=== PATIENT | female | born 1990 | race Caucasian/White ===

== ENCOUNTER 2016-11-03 11:15 | Emergency (ER) | payer BC ==
[2016-11-03 11:32] VITALS: RESP 16; TEMP 99.2
[2016-11-03] MEDS ORDERED: SODIUM CHLORIDE 0.9% 1,000 ML IV STA ×2 (11:50)
[2016-11-03] MEDS ORDERED: KETOROLAC 30 MG/ML 1 ML VIAL IVP STA (11:50)
--- NOTE | 2016-11-03 11:53 | ED ---
General Adult HPI - General Chief complaint: Abdominal Pain Stated complaint: vaginal bleeding Time Seen by Provider: 11/03/16 11:38 Source: patient, RN notes reviewed Mode of arrival: ambulatory Limitations: no limitations - History of Present Illness Initial comments: Patient 25-year-old female who presents emergency room today with a chief complaint of vaginal bleeding. Patient does admit that the bleeding began approximately 6 days ago. Patient does admit that she was at urgent care yesterday. She states started as small spotting for the first 2 days. States it began be heavier over the last 3. States again today is back more spotting. She does admit that she was advised to come to the emergency room if there was any pain. States pain began this morning both the right and left lower quadrant. Also admits that she felt a "heaviness" over her chest yesterday. States she laid down to get better. States felt fine this morning. States is that has been progressing the "heaviness" has returned. Patient denies any other complaints or associated symptoms. Patient denies any recent fever, chills, shortness of breath, back pain, nausea or vomiting, numbness or tingling, dysuria or hematuria, constipation or diarrhea, headaches or visual changes, or any other complaints. - Related Data Home Medications Medication Instructions Recorded Confirmed Magnesium(Unknown) 1 tab PO AC-LUNCH 11/03/16 11/03/16 Phentermine HCl [Adipex-P] 37.5 mg PO Q48H 11/03/16 11/03/16 Pnv with Ca,No.72/Iron/FA 1 tab PO Q48H 11/03/16 11/03/16 [ Plus Tablet] Vitamin B-12/Vitamin C 1 tab PO AC-LUNCH 11/03/16 11/03/16 Previous Rx's Medication Instructions Recorded Ibuprofen [Motrin] 600 mg PO Q6HR PRN #40 day 11/03/16 Nitrofurantoin Monohyd/M-Cryst 100 mg PO Q12HR #14 cap 11/03/16 [Macrobid] Allergies Allergy/AdvReac Type Severity Reaction Status Date / Time No Known Allergies Allergy Verified 11/03/16 11:56 Review of Systems ROS Statement: Those systems with pertinent positive or pertinent negative responses have been documented in the HPI. ROS Other: All systems not noted in ROS Statement are negative. Past Medical History Past Medical History: No Reported History Additional Past Medical History / Comment(s): KIDNEY STONE ovarian cysts History of Any Multi-Drug Resistant Organisms: None Reported Past Surgical History: No Surgical Hx Reported Additional Past Surgical History / Comment(s): IUD Past Psychological History: No Psychological Hx Reported Smoking Status: Current every day smoker Past Alcohol Use History: Occasional Past Drug Use History: None Reported General Exam - General Exam Comments Initial Comments: General: The patient is awake and alert, in no distress, and does not appear acutely ill. Eye: Pupils are equal, round and reactive to light, extra-ocular movements are intact. No nystagmus. There is normal conjunctiva bilaterally. No signs of icterus. Ears, nose, mouth and throat: There are moist mucous membranes and no oral lesions. Neck: The neck is supple, there is no tenderness or JVD. Cardiovascular: There is a regular rate and rhythm. No murmur, rub or gallop is appreciated. Respiratory: Lungs are clear to auscultation, respirations are non-labored, breath sounds are equal. No wheezes, stridor, rales, or rhonchi. Gastrointestinal: Normal appearance. Normal bowel sounds. Abdomen soft on palpation. Patient does have mild tenderness both right and left lower quadrants. No rebound tenderness. No guarding. No CVA tenderness. Musculoskeletal: Normal ROM, no tenderness. Strength 5/5. Sensation intact. Pulses equal bilaterally 2+. Neurological: A&O x 3. CN II-XII intact, There are no obvious motor or sensory deficits. Coordination appears grossly intact. Speech is normal. Skin: Skin is warm and dry and no rashes or lesions are noted. Psychiatric: Cooperative, appropriate mood & affect, normal judgment. Limitations: no limitations Course Vital Signs 11/03/16 11:29 Temperature 99.2 F Pulse Rate 115 H Respiratory 16 Rate Blood Pressure 123/86 O2 Sat by Pulse 100 Oximetry Medical Decision Making - Medical Decision Making Patient's ultrasound reviewed and does show anteverted nabothian cyst 1.1 cm. Endometrium shows IUD visualized. Left ovary does show a cystic structure measuring 1.81.71.6 cm. No evidence for ovarian torsion is good color flow. Adnexa is within normal limits. Small amount of free fluid in the posterior cul -de-sac. Patient's labs been reviewed does show 9 white cells and urinalysis. Remaining labs unremarkable. Hemoglobin stable. Patient reexamined at this time shows no signs of distress. Patient will be discharged home. Patient admits to a small amount of spotting currently. Patient will be treated for UTI advised follow-up with her [employer]ER WORKER over the next 2 days. She admits that she was at urgent care yesterday had a pelvic exam performed with cultures which are currently pending. - Lab Data Result diagrams: 11/03/16 12:35 Lab Results 11/03/16 11/03/16 11/03/16 Range/Units 12:35 12:35 12:35 WBC 4.9 (3.8-10.6) k/uL RBC 4.82 (3.80-5.40) m/uL Hgb 15.4 (11.4-16.0) gm/dL Hct 45.2 (34.0-46.0) % MCV 93.8 (80.0-100.0) fL MCH 31.9 (25.0-35.0) pg MCHC 34.0 (31.0-37.0) g/dL RDW 12.7 (11.5-15.5) % Plt Count 215 (150-450) k/uL Neutrophils % 74 % Lymphocytes % 15 % Monocytes % 7 % Eosinophils % 2 % Basophils % 1 % Neutrophils # 3.6 (1.3-7.7) k/uL Lymphocytes # 0.7 L (1.0-4.8) k/uL Monocytes # 0.4 (0-1.0) k/uL Eosinophils # 0.1 (0-0.7) k/uL Basophils # 0.1 (0-0.2) k/uL PT 11.3 (9.0-12.0) sec INR 1.1 (<1.1) APTT 25.7 (22.0-30.0) sec Troponin I (0.000-0.034) ng/mL Urine Color Urine Appearance (Clear) Urine pH (5.0-8.0) Ur Specific [place] (1.001-1.035) Urine Protein (Negative) Urine Glucose (UA) (Negative) Urine Ketones (Negative) Urine Blood (Negative) Urine Nitrate (Negative) Urine Bilirubin (Negative) Urine Urobilinogen (<2.0) mg/dL Ur Leukocyte Esterase (Negative) Urine RBC (0-5) /hpf Urine WBC (0-5) /hpf Ur Squamous Epith Cells (0-4) /hpf Urine Mucus (None) /hpf Urine HCG, Qual Not Detected (Not Detectd) 11/03/16 11/03/16 Range/Units 12:35 12:35 WBC (3.8-10.6) k/uL RBC (3.80-5.40) m/uL Hgb (11.4-16.0) gm/dL Hct (34.0-46.0) % MCV (80.0-100.0) fL MCH (25.0-35.0) pg MCHC (31.0-37.0) g/dL RDW (11.5-15.5) % Plt Count (150-450) k/uL Neutrophils % % Lymphocytes % % Monocytes % % Eosinophils % % Basophils % % Neutrophils # (1.3-7.7) k/uL Lymphocytes # (1.0-4.8) k/uL Monocytes # (0-1.0) k/uL Eosinophils # (0-0.7) k/uL Basophils # (0-0.2) k/uL PT (9.0-12.0) sec INR (<1.1) APTT (22.0-30.0) sec Troponin I <0.012 (0.000-0.034) ng/mL Urine Color Yellow Urine Appearance Clear (Clear) Urine pH 6.0 (5.0-8.0) Ur Specific [place] 1.027 (1.001-1.035) Urine Protein 1+ H (Negative) Urine Glucose (UA) Negative (Negative) Urine Ketones Negative (Negative) Urine Blood Large H (Negative) Urine Nitrate Negative (Negative) Urine Bilirubin Negative (Negative) Urine Urobilinogen <2.0 (<2.0) mg/dL Ur Leukocyte Esterase Small H (Negative) Urine RBC 4 (0-5) /hpf Urine WBC 9 H (0-5) /hpf Ur Squamous Epith Cells 3 (0-4) /hpf Urine Mucus Occasional H (None) /hpf Urine HCG, Qual (Not Detectd) Disposition Clinical Impression: Dysfunctional uterine bleeding, UTI (urinary tract infection) Disposition: HOME SELF-CARE Condition: Good Instructions: Dysfunctional Uterine Bleeding (ED) Additional Instructions: Please follow-up the RU[employer]ER WORKER over the next 1-2 days. Please use medications as prescribed and return to emergency room if any symptoms increase or worsen or for any other concerns. Prescriptions: Ibuprofen [Motrin] 600 mg PO Q6HR PRN #40 day PRN Reason: Pain Nitrofurantoin Monohyd/M-Cryst [Macrobid] 100 mg PO Q12HR #14 cap Time of Disposition: 14:29
[2016-11-03 12:58] LABS: Basophils # (A) 0.1 k/uL (0-0.2); Basophils % (A) 1 %; CH 32.4; CHCM 34.7; Eosinophils # (A) 0.1 k/uL (0-0.7); Eosinophils % (A) 2 %; HCT 45.2 % (34.0-46.0); HDW 2.43; HGB 15.4 gm/dL (11.4-16.0); Luc # (Auto) 0.04; Luc % (Auto) 1; Lymphocytes # (A) 0.7 k/uL (1.0-4.8); Lymphocytes % (A) 15 %; MCH 31.9 pg (25.0-35.0); MCV 93.8 fL (80.0-100.0); Mean Platelet Volume 7.9; Monocytes # (A) 0.4 k/uL (0-1.0); Monocytes % (A) 7 %; Neutrophils # (A) 3.6 k/uL (1.3-7.7); Neutrophils % (A) 74 %; RBC 4.82 m/uL (3.80-5.40); RDW 12.7 % (11.5-15.5); WBC 4.9 k/uL (3.8-10.6); WBC (Perox) 4.98
[2016-11-03 13:03] LABS: Appearance,Urine Clear (Clear); Bilirubin,Urine Negative (Negative); Glucose,Urine (UA) Negative (Negative); Ketones,Urine Negative (Negative); Leukocyte Esterase,Urine Small (Negative); Mucus,Urine Occasional /hpf; Nitrite,Urine Negative (Negative); Particle Count 10200; Protein,Urine 1+ (Negative); RBC,Urine 4 /hpf (0-5); Specific Gravity,Urine 1.027 (1.001-1.035); Squamous Epithelial Cell,Urine 3 /hpf (0-4); UA Billing (MACRO vs. MICRO) MICRO; Urobilinogen,Urine <2.0 mg/dL (<2.0); WBC,Urine 9 /hpf (0-5)
[2016-11-03 13:07] LABS: INR 1.1 (<1.1); Partial Thromboplastin Time 25.7 sec (22.0-30.0); Prothrombin Time 11.3 sec (9.0-12.0)
--- NOTE | 2016-11-03 14:27 | US ---
EXAMINATION TYPE: US transvaginal DATE OF EXAM: 11/03/2016 1:48 PM COMPARISON: NONE CLINICAL HISTORY: pain/bleeding. vaginal bleeding x 6 days, right pelvic pain, IUD placement 03/01 TECHNIQUE: Transvaginal (TV) Date of LMP: 10/19/16 EXAM MEASUREMENTS: Uterus: 7.1 x 3.9 x 5.4 cm Endometrial Stripe: 0.5 cm Right Ovary: 3.2 x 1.7 x 2.5 cm Left Ovary: 3.4 x 2.1 x 2.4 cm FINDINGS: 1. Uterus: Anteverted Nabothian cyst = 1.1cm 2. Endometrium: IUD visualized 3. Right Ovary: follicles noted 4. Left Ovary: cystic area with septation = 1.8 x 1.6 x 1.7cm Spectral, color and waveform doppler imaging shows good arterial and venous flow within the ovaries ; there is no evidence for ovarian torsion. 5. Bilateral Adnexa: appears wnl 6. Posterior cul-de-sac: small amount of free fluid IMPRESSION: 1. IUD noted in stable position. 2. Complicated 1.8 cm right ovarian cyst which is reduced in size from previous exam. Correlate with beta hCG if there is concern for ectopic .
[2016-11-03 14:47] VITALS: BP 113/72; PULSE 77
== END 2016-11-03 14:46 | disposition home or self-care (01) ==
LOC: EC 11:15
DX: N93.8 Other specified abnormal uterine and vaginal bleeding (principal); N39.0 Urinary tract infection, site not specified; N83.201 Unspecified ovarian cyst, right side; N88.8 Other specified noninflammatory disorders of cervix uteri; F17.200 Nicotine dependence, unspecified, uncomplicated; Z97.5 Presence of (intrauterine) contraceptive device; Z87.442 Personal history of urinary calculi; Z79.899 Other long term (current) drug therapy
CPT/HCPCS: 99284; 96374; 96361 ×2; 36415; 93005; 84484; 85025; 85610; 85730; 81001; 81025; 93975; 76830; J1885

== ENCOUNTER 2016-11-04 13:13 | Observation (INO) | payer BC ==
[2016-11-04] MEDS ORDERED: ACETAMINOPHEN TAB 325 MG TAB PO PRN (16:07)
[2016-11-04] MEDS ORDERED: MELATONIN 3 MG TABLET PO PRN (16:07)
[2016-11-04] MEDS ORDERED: NALOXONE 0.4 MG/ML 1 ML VIAL IV PRN (16:07)
[2016-11-04] MEDS ORDERED: ONDANSETRON 4 MG/2 ML VIAL IVP PRN (16:07)
[2016-11-04 17:42] LABS: Basophils % (A) 1 %; CH 32.3; CHCM 33.6; Eosinophils # (A) 0.1 k/uL (0-0.7); Eosinophils % (A) 2 %; HCT 43.3 % (34.0-46.0); HDW 2.45; HGB 14.4 gm/dL (11.4-16.0); Luc # (Auto) 0.11; Luc % (Auto) 2; Lymphocytes # (A) 1.1 k/uL (1.0-4.8); Lymphocytes % (A) 23 %; MCHC 33.1 g/dL (31.0-37.0); MCV 96.5 fL (80.0-100.0); Mean Platelet Volume 7.9; Monocytes # (A) 0.4 k/uL (0-1.0); Monocytes % (A) 8 %; Neutrophils # (A) 3.2 k/uL (1.3-7.7); Neutrophils % (A) 65 %; RBC 4.49 m/uL (3.80-5.40); RDW 12.8 % (11.5-15.5); WBC 4.9 k/uL (3.8-10.6); WBC (Perox) 5.09
[2016-11-04] MEDS: PIPERACILLIN-TAZOBACTAM 3.375 GM in DEXTROSE/WATER 1 50ML.BAG IVPB SCH ×2 (17:45→23:39)
[2016-11-04] MEDS: SODIUM CHLORIDE 0.9% 1,000 ML IV SCH (17:46)
[2016-11-04 18:09] LABS: ALT 64 U/L (9-52); AST 61 U/L (14-36); Alkaline Phosphatase 79 U/L (38-126); Anion Gap 12 mmol/L; Blood Urea Nitrogen 5 mg/dL (7-17); Calcium 9.4 mg/dL (8.4-10.2); Carbon Dioxide 24 mmol/L (22-30); Chloride 109 mmol/L (98-107); Glucose 86 mg/dL (74-99); Non-African American GFR(MDRD) >60 (>60 ml/min/1.73 sqM); Potassium 4.2 mmol/L (3.5-5.1); Sodium 145 mmol/L (137-145); Total Bilirubin 0.4 mg/dL (0.2-1.3); Total Protein 7.2 g/dL (6.3-8.2)
--- NOTE | 2016-11-04 19:11 | P.OBCN ---
History of Present Illness Consult date: 11/04/16 Requesting physician: Francisco Finn Reason for consult: pelvic infection History of present illness: This is a 25-year-old white female 1 para 1001 last menstrual period 09/2016. Patient presented through the emergency room with the complaint of bilateral hip pain and lower back pain for approximately 24 hours. She states that it is constant and dull, 3-4 out of 10, with occasional very sharp episodes 10 out of 10. She denies nausea or vomiting. No diarrhea. Last bowel movement yesterday, normal. Last intercourse yesterday, no pain with intercourse. She denies fevers shakes or chills, but was said to have a temperature of 101.5 at her primary care physician's office. Past medical history is positive for kidney stones in the past, pt had a Paraguard IUD placed per Dr. Polanco in 2013. Past surgical history negative. Past obstetric history normal spontaneous vaginal delivery 2010, liveborn female . Current medications none. ALLERGIES none known. Social history patient is , she smokes tobacco 1/2-1/4 pack per day since age 18. She denies drug use. She states that both she and her are monogamous. Past gynecologic history menarche began at the age of 12 with 28 day interval and 4 day duration. She spotted for 2 days, dark flow on to 1017 and 2016. She feels the flow had a strong unusual odor. She otherwise denies the history of GC, chlamydia, HSV or HPV infections. On exam this is a pleasant white female, 5 foot 4 inches, 156 pounds, blood pressure 116/70, temperature 98.0, 97% O2 saturation on room air, pulse 92. HEENT exam is negative. There is no thyromegaly. She has good dentition. Breast exam reveals no masses, no nipple discharge, no skin changes, no lymph nodes to palpation. Abdomen is soft and nontender, no organosplenomegaly, tender suprapubically with no rebound or guarding. No obvious masses. No CVA tenderness. Extremities reveal no edema, good peripheral pulses, normal strength and range of motion. And pelvic exam external genitalia is well estrogenized. There is no unusual vaginal discharge appreciated. There is no cervical motion tenderness, cervix is long firm and closed. IUD strings are palpated at the external os. Uterus is retroverted, mobile, minimally tender to palpation. Left adnexa is mobile smooth and small, nontender. Patient has tenderness to palpation of the right adnexal region, however there is no mass noted. Pelvic ultrasound reveals a uterus 7.1 x 3.9 x 5.4 cm, endometrial thickness 0.5 cm, left ovary 3.2 x 1.7 x 2.5 cm, right ovary 3.4 x 2.1 x 2.4 cm, there is a small 1.8 cm left adnexal cyst noted. Minimal fluid in the cul-de-sac. AST 61, ALT 64, hemoglobin 14.4, hematocrit 43.3, white count 4.9. Impression: Admitting diagnosis of PID, although the social history does not support this and her white count is normal. Patient is currently on Zosyn and Flagyl for same. IUD appears well placed, uterus is nontender. Elevated liver enzymes noted. Plan: GC and chlamydia culture has been ordered through the urine. Trichomonas culture from outside lab is negative. We will also order urine hCG. Continue antibiotics at this time. Review of Systems Constitutional: Reports as per HPI Past Medical History Past Medical History: No Reported History Additional Past Medical History / Comment(s): KIDNEY STONE, ovarian cysts, poly cystic ovary, uti x1 when she was . History of Any Multi-Drug Resistant Organisms: None Reported Past Surgical History: No Surgical Hx Reported Additional Past Surgical History / Comment(s): IUD, tooth extraction Past Anesthesia/Blood Transfusion Reactions: No Reported Reaction Past Psychological History: No Psychological Hx Reported Smoking Status: Current every day smoker Past Alcohol Use History: Occasional Additional Past Alcohol Use History / Comment(s): started smoking at age 18( stopped while ) then resume, smokes 4-5 cig per day. Past Drug Use History: None Reported - Past Family History Father Additional Family Medical History / Comment(s): in hunting accident Mother Additional Family Medical History / Comment(s): healthy Medications and Allergies Home Medications Medication Instructions Recorded Confirmed Type Magnesium(Unknown) 1 tab PO AC-LUNCH 11/03/16 11/04/16 History Phentermine HCl [Adipex-P] 37.5 mg PO Q48H 11/03/16 11/04/16 History Pnv with Ca,No.72/Iron/FA 1 tab PO DAILY 11/03/16 11/04/16 History [ Plus Tablet] Vitamin B-12/Vitamin C 1 tab PO DAILY 11/03/16 11/04/16 History Allergies Allergy/AdvReac Type Severity Reaction Status Date / Time No Known Allergies Allergy Verified 11/04/16 14:21 Exam - Vital Signs Vital signs: Vital Signs Temp Pulse Resp BP Pulse Ox 11/04/16 14:10 98.1 F 116 H 16 116/70 97 Intake and Output 11/04/16 11/04/16 11/04/16 06:59 14:59 22:59 Other: Weight 72.5 kg Patient Weight 11/05/16 06:59 Weight 72.5 kg See dictation, please Results Result Diagrams: 11/04/16 17:15 11/04/16 17:15 Abnormal Lab Results - Last 24 Hours (Table) 11/04/16 Range/Units 17:15 Chloride 109 H (98-107) mmol/L BUN 5 L (7-17) mg/dL AST 61 H (14-36) U/L ALT 64 H (9-52) U/L Assessment and Plan Plan: Continue Zosyn and Flagyl at this time. Urine cultures for gonorrhea and chlamydia have been ordered along with urine test. Time with Patient: Greater than 30
[2016-11-04] MEDS: metroNIDAZOLE-NS PMX 500 MG in SALINE 1 100ML.BAG IVPB SCH (20:20)
[2016-11-04] MEDS: LORATADINE-PSEUDOEPH 5-120 MG 1 EACH TAB.ER.12H PO SCH (20:20)
[2016-11-04] MEDS: KETOROLAC 30 MG/ML 1 ML VIAL IVP PRN (20:23)
--- NOTE | 2016-11-04 20:52 | HP ---
DATE OF ADMISSION: 11/04/2016 PRESENTING COMPLAINT: Fever. Abdominal pain. HISTORY OF PRESENTING COMPLAINT: This is a pleasant 25-year-old patient of Dr. Loera whose only chronic stable medical condition is that of polycystic ovarian syndrome. Patient over a week ago started off with vaginal spotting, and then about 3 or 4 ( ) started having vaginal blood that was gushing out. Patient developed lower abdominal pain and fever up to 101.5. Patient had IUD placed about a year and a half ago. Does feel weak, tired and also slightly congested. REVIEW OF SYSTEMS: CONSTITUTIONAL: Febrile. Tired. HEENT: Nasal congestion. RESPIRATORY: As above. CARDIOVASCULAR: None. GASTROINTESTINAL: None. GENITOURINARY: As above. MUSCULOSKELETAL: None. Dermatologic: None. HEMATOLOGIC: None. LYMPHATIC: None. PSYCHIATRY: None. NEUROLOGICAL: None. Past medical history: Polycystic ovarian syndrome, kidney stone. PAST SURGICAL HISTORY: IUD, tooth extraction. SOCIAL HISTORY: Smokes 4 to 5 cigarettes a day. Patient is a director field services for [employer] . Alcohol occasionally. FAMILY HISTORY: Reviewed, noncontributory to the presentation. HOME MEDICATIONS: 1. Vitamin B12. 2. Vitamin C 1 tablet daily. 3. Plus 1 tablet p.o. daily. 4. Adipex-P 37.5 q. 48 hours. 5. Macrobid 100 mg p.o. q.12. 6. Magnesium 1 tablet ( ) lunch. 7. Motrin 600 mg 6 p.r.n. ALLERGIES: None. On examination, temperature 98.1, pulse 116, respirations 16, blood pressure 116/70, pulse ox 97% on room air. The patient did have a fever of 101.5 at the doctor's office. GENERAL APPEARANCE: Average build, lying in bed, tired -appearing. EYES: Pupils equal, conjunctivae normal. HEENT: Oral cavity normal. NECK: JVD not raised. Mass not palpable. RESPIRATORY: Effort normal. Lungs are clear. CARDIOVASCULAR: First and second sounds normal. No edema. ABDOMEN: Soft suprapubic tenderness. No guarding or rigidity. Liver and spleen not palpable. LYMPHATIC: No lymph nodes palpable in neck or axillae. PSYCHIATRY: Alert and oriented x3. Mood and affect normal. NEUROLOGICAL: Pupils equal. Cranial nerves grossly intact. Power and sensation grossly intact. INVESTIGATIONS: White count 4.9, hemoglobin 14.4. Potassium 4.2, BUN 5, creatinine 0.92. ASSESSMENT: 1. This is a patient with IUD in place with pelvic tenderness, increasing menorrhagia with a fever. This could be well from endometrial infection. 2. Polycystic ovarian syndrome. PLAN: WELD FITTER was consulted. Patient was put empirically on Zosyn and Flagyl, for the nasal congestion give some Claritin D. Care was discussed with the patient.
[2016-11-05] MEDS: metroNIDAZOLE-NS PMX 500 MG in SALINE 1 100ML.BAG IVPB SCH ×2 (05:04→12:53)
[2016-11-05] MEDS: SODIUM CHLORIDE 0.9% 1,000 ML IV SCH ×2 (05:08→16:27)
[2016-11-05 07:29] LABS: Basophils % (A) 0 %; CH 31.8; CHCM 33.6; Eosinophils # (A) 0.1 k/uL (0-0.7); Eosinophils % (A) 3 %; HCT 42.4 % (34.0-46.0); HDW 2.48; HGB 13.7 gm/dL (11.4-16.0); Luc # (Auto) 0.12; Luc % (Auto) 4; Lymphocytes # (A) 1.2 k/uL (1.0-4.8); Lymphocytes % (A) 42 %; MCH 30.7 pg (25.0-35.0); MCHC 32.4 g/dL (31.0-37.0); MCV 94.9 fL (80.0-100.0); Mean Platelet Volume 7.2; Monocytes # (A) 0.2 k/uL (0-1.0); Monocytes % (A) 7 %; Neutrophils # (A) 1.2 k/uL (1.3-7.7); Neutrophils % (A) 42 %; RBC 4.47 m/uL (3.80-5.40); RDW 12.9 % (11.5-15.5); WBC 2.8 k/uL (3.8-10.6)
[2016-11-05] MEDS: PIPERACILLIN-TAZOBACTAM 3.375 GM in DEXTROSE/WATER 1 50ML.BAG IVPB SCH ×2 (08:16→16:27)
[2016-11-05] MEDS: KETOROLAC 30 MG/ML 1 ML VIAL IVP PRN (08:17)
[2016-11-05] MEDS: LORATADINE-PSEUDOEPH 5-120 MG 1 EACH TAB.ER.12H PO SCH (08:47)
--- NOTE | 2016-11-05 11:20 | P.PN ---
Subjective Principal diagnosis: Presumptive diagnosis of PID. Only scant vaginal drainage. Pain improved, 3-4 out of 10, most notably in the lower back. Objective - Vital Signs Vital signs: Vital Signs Temp 98.6 F 11/05/16 07:00 Pulse 88 11/05/16 07:00 Resp 16 11/05/16 07:00 BP 103/69 11/05/16 07:00 Pulse Ox 97 11/05/16 07:00 Intake & Output 11/04/16 11/05/16 11/05/16 18:59 06:59 18:59 Intake Total 2740 Balance 2740 Weight 72.5 kg Intake: IV 1800 Sodium Chloride 0.9% 1, 1800 000 ml @ 125 mls/hr IV . Q8H ALESSANDRO Rx#:[id number] Intake, IV Titration 150 Amount Piperacillin-Tazobactam 3 50 .375 gm In Dextrose/Water 1 50ml.bag @ 12.5 mls/hr IVPB Q8HR ALESSANDRO Rx#: [id number] metroNIDAZOLE-NS PMX 500 100 mg In Saline 1 100ml.bag @ 100 mls/hr IVPB Q8H ALESSANDRO Rx#:[id number] Oral 790 Other: # Voids 2 - Constitutional General appearance: Present: average body habitus, cooperative - EENT Eyes: Present: PERRLA ENT: Present: hearing grossly normal - Neck Neck: Present: normal ROM Thyroid: bilateral: normal size - Respiratory Respiratory: bilateral: CTA - Cardiovascular Rhythm: regular - Gastrointestinal General gastrointestinal: Present: normal bowel sounds - Integumentary Integumentary: Present: normal - Neurologic Neurologic: Present: CNII-XII intact - Musculoskeletal Musculoskeletal: Present: gait normal, strength equal bilaterally - Psychiatric Psychiatric: Present: A&O x's 3, appropriate affect, intact judgment & insight - Labs CBC & Chem 7: 11/05/16 07:03 11/04/16 17:15 Labs: Abnormal Lab Results - Last 24 Hours (Table) 11/04/16 11/05/16 Range/Units 17:15 07:03 WBC 2.8 L (3.8-10.6) k/uL Neutrophils # 1.2 L (1.3-7.7) k/uL Chloride 109 H (98-107) mmol/L BUN 5 L (7-17) mg/dL AST 61 H (14-36) U/L ALT 64 H (9-52) U/L Assessment and Plan Plan: Patient appears stable to me for discharge home. Pending Dr. Finn's evaluation and decision making, I would continue her on doxycycline orally, 100 mg pills, twice daily for 10 days. A prescription is written for the patient. Upon discharge, I would have her follow-up in the office with Dr. Polanco. She has an appointment scheduled with her for early November. Thank you for the consultation. Time with Patient: Less than 30
[2016-11-05 16:33] VITALS: BP 124/80; PULSE 81; RESP 18; TEMP 98.2
[2016-11-05] MEDS ORDERED: metroNIDAZOLE 500 MG TAB PO SCH (22:00)
--- NOTE | 2016-11-06 10:33 | DS ---
DATE OF ADMISSION: 11/04/2016 DATE OF DISCHARGE: 11/05/2016 FINAL DIAGNOSES: 1. Upper respiratory tract, probably viral infection. 2. Polycystic ovarian syndrome. 3. Abnormal menstruation, probably stress related. 4. Attention deficit hyperactivity disorder. 5. Nicotine dependence. Patient is in a smoker. HOSPITAL COURSE: This patient presented with abnormal uterine bleeding felt to be displacement of irregular menstrual cycles from severe stress because of new job responsibilities. Patient also had an upper respiratory tract infection, appears to be viral. Patient did have a pelvic examination by Dr. Delgado, rather benign -appearing. Patient never had white count or fever here. Hence, the fever is probably explained by upper respiratory tract. I did talk to Dr. Delgado at length today. Patient to be on the safe side will be given a course of doxycycline and follow with Dr. Polanco. Care was discussed with the patient. On exam: ABDOMEN: Soft, nontender. LUNGS: Clear. DISCHARGE MEDICATIONS: 1. Motrin 600 mg q.6 p.r.n. 2. Adipex-P 37.5 tablet q.48 hours. 3. Vitamin B12. 4. Vitamin C 1 tablet daily. 5. Doxycycline 50 mg p.o. q.12, 14 capsules. 6. Claritin D 5/120, 1 tablet q.12, [address] Loera in [address] Polanco in a week. Discharge planning more than 35 minutes.
== END 2016-11-05 18:35 | disposition home or self-care (01) ==
LOC: INTOOBSV 13:39 → 5ONC 13:39
PROVIDERS: ADMIT Hospitalist; ATTEND Hospitalist
DX: J06.9 Acute upper respiratory infection, unspecified (principal); E28.2 Polycystic ovarian syndrome; N73.9 Female pelvic inflammatory disease, unspecified; N92.0 Excessive and frequent menstruation with regular cycle; F90.9 Attention-deficit hyperactivity disorder, unspecified type; Z97.5 Presence of (intrauterine) contraceptive device; R53.1 Weakness; F17.210 Nicotine dependence, cigarettes, uncomplicated; Z79.899 Other long term (current) drug therapy; Z87.442 Personal history of urinary calculi
CPT/HCPCS: 80053; 87591; 87491; 85025 ×2; 81025; 87040; G0379; G0378 ×2; J1885 ×2; J2543 ×2; 96365; 96366; 96375; 96376

== ENCOUNTER 2018-03-26 11:07 | Emergency (ER) | payer BC ==
[2018-03-26 12:06] VITALS: BP 127/76; PULSE 89; RESP 18; TEMP 96.7
--- NOTE | 2018-03-26 12:25 | XR ---
Right knee HISTORY: Trauma and pain 3 views of the right knee Bone mineralization, joint spaces and alignment are maintained. Difficult to exclude small suprapatel lar joint effusion. IMPRESSION: No fracture or dislocation. There may be small joint effusion.
--- NOTE | 2018-03-26 13:20 | ED ---
General Adult HPI - General Chief complaint: Extremity Injury, Lower Stated complaint: Right Knee Injury Time Seen by Provider: 03/26/18 12:16 Source: patient Mode of arrival: ambulatory Limitations: no limitations - History of Present Illness Initial comments: This is a 27-year-old female with no past medical history presents today for chief complaint of right knee pain patient states that 4 days ago while she was camping, they're moving a picnic table in the dark when she stepped back into a hole twisting her right knee outward. She stated that she felt like it gave out. However she denies any dislocation posteriorly or laterally. Patient states it is difficult to stand bear weight secondary to pain after the incident. Addition she admits to tender to palpation of the lateral aspect of the knee and right knee swelling. Patient called [facility] who could not get her appointment for Monday. She presents emergency department to make sure there is no fracture or serious injury. Patient is complaining of right knee pain and swelling. Denies erythema of the overlying skin, fever, chills, numbness, tingling, paresthesias of the lower extremities bilaterally, coolness of the LE b/l, calf pain. She has been taking Motrin for pain management which is helped minimally. She was brought today by a friend because she was having difficulty presently gas and brake with her right leg. VS stable upon presentation. In addition patient denies any recent hortness of breath, chest pain, back pain, abdominal pain, nausea or vomiting, numbness or tingling, dysuria or hematuria, constipation or diarrhea, headaches or visual changes, or any other complaints. - Related Data Home Medications Medication Instructions Recorded Confirmed Magnesium(Unknown) 1 tab PO AC-LUNCH 11/03/16 11/04/16 Phentermine HCl [Adipex-P] 37.5 mg PO Q48H 11/03/16 11/04/16 Pnv,Calcium 72/Iron/Folic Acid 1 tab PO DAILY 11/03/16 11/04/16 [ Plus Tablet] Vitamin B-12/Vitamin C 1 tab PO DAILY 11/03/16 11/04/16 Previous Rx's Medication Instructions Recorded Ibuprofen [Motrin] 600 mg PO Q6HR PRN #40 day 11/03/16 Doxycycline [Vibramycin] 50 mg PO Q12HR #14 capsule 11/05/16 Loratadine-Pseudoeph 5-120 mg 1 each PO Q12HR #4 tab.er.12h 11/05/16 [Claritin-D 12 Hour] Ibuprofen [Motrin] 800 mg PO Q8H PRN 5 Days #15 tab 03/26/18 Allergies Allergy/AdvReac Type Severity Reaction Status Date / Time Penicillins Allergy Unknown Verified 03/26/18 12:04 Review of Systems ROS Statement: Those systems with pertinent positive or pertinent negative responses have been documented in the HPI. ROS Other: All systems not noted in ROS Statement are negative. Constitutional: Denies: fever, chills Eyes: Denies: eye pain, vision change ENT: Denies: ear pain Respiratory: Denies: cough Cardiovascular: Denies: chest pain, palpitations Endocrine: Denies: fatigue Gastrointestinal: Denies: abdominal pain, nausea, vomiting, diarrhea, constipation, hematemesis Genitourinary: Denies: urgency, dysuria, frequency Musculoskeletal: Reports: as per HPI, joint swelling, arthralgia. Denies: back pain Skin: Denies: rash, lesions Neurological: Denies: headache, weakness Past Medical History Past Medical History: No Reported History Additional Past Medical History / Comment(s): KIDNEY STONE, ovarian cysts, poly cystic ovary, History of Any Multi-Drug Resistant Organisms: None Reported Past Surgical History: No Surgical Hx Reported Additional Past Surgical History / Comment(s): IUD, tooth extraction Past Anesthesia/Blood Transfusion Reactions: No Reported Reaction Past Psychological History: No Psychological Hx Reported Smoking Status: Current every day smoker Past Alcohol Use History: Occasional Past Drug Use History: None Reported - Past Family History Father Additional Family Medical History / Comment(s): in hunting accident Mother Additional Family Medical History / Comment(s): healthy General Exam - General Exam Comments Initial Comments: General: The patient is awake and alert, in no distress, and does not appear acutely ill. Eye: Pupils are equal, round and reactive to light, extra-ocular movements are intact. No nystagmus. There is normal conjunctiva bilaterally. No signs of icterus. Ears, nose, mouth and throat: There are moist mucous membranes and no oral lesions. Neck: The neck is supple, there is no tenderness or JVD. Cardiovascular: There is a regular rate and rhythm. No murmur, rub or gallop is appreciated. Respiratory: Lungs are clear to auscultation, respirations are non-labored, breath sounds are equal. No wheezes, stridor, rales, or rhonchi. Gastrointestinal: [Soft, non-distended, non-tender abdomen without masses or organomegaly noted. There is no rebound or guarding present. No CVA tenderness. Bowel sounds are unremarkable.] Musculoskeletal: Tenderness to palpation and both active and passive ROM of the right knee. Strength 5/5 of LE b/l. Extensor mechanism intact. Sensation intact equally of LE b/l.. DP ulses equal bilaterally 2+. Capillary refill < 2sec LE b/l. There is swelling of the right knee in comparison with the left knee, however there is no obvious deformity or defect of the right knee. No overlying abrasions, lesions or masses of the knees bilaterally. Neurological: A&O x 3. CN II-XII intact, There are no obvious motor or sensory deficits. Coordination appears grossly intact. Speech is normal. Skin: Skin is warm and dry and no rashes or lesions are noted. Psychiatric: Cooperative, appropriate mood & affect, normal judgment. Limitations: no limitations Course Vital Signs 03/26/18 12:04 Temperature 96.7 F L Pulse Rate 89 Respiratory 18 Rate Blood Pressure 127/76 O2 Sat by Pulse 99 Oximetry Medical Decision Making - Medical Decision Making X-ray of the right knee was obtained revealing no acute fracture or dislocation. There was evidence of a small effusion. At this time I do feel there is a possible LCL ligament injury given physical examinatino findings. [facility] she is instructed to keep this appointment for follow-up, as well as further evaluation and treatment as needed. In addition patient was instructed to use knee brace for support she stated she would buy this from [employer]. She is to ice, elevate, and rest knee. Pt was given work note until cleared by orthopedics monday. Pt was given RX for ibuprofen 800mg for pain mgmt as needed. Case is discussed with Dr. Mcneill who agrees the plan. At this time I feel patient is stable for discharge, vital signs within normal limits. Patient is to return emergency department if symptoms change or worsen. Disposition Clinical Impression: Pain of right knee after injury, Knee LCL sprain Disposition: HOME SELF-CARE Condition: Good Instructions: Knee Sprain (ED) Additional Instructions: Please use medication as discussed. Please follow-up with family doctor in the next 2 days of symptoms have not improved. [facility] as scheduled. Please return to emergency room if the symptoms increase or worsen or for any other concerns. Prescriptions: Ibuprofen [Motrin] 800 mg PO Q8H PRN 5 Days #15 tab PRN Reason: Pain Is patient prescribed a controlled substance at d/c from ED?: No Referrals: Jhon Loera DO [Primary Care Provider] - 1-2 days Time of Disposition: 13:21
== END 2018-03-26 13:28 | disposition home or self-care (01) ==
LOC: EC 11:07
DX: S83.421A Sprain of lateral collateral ligament of right knee, initial encounter (principal); F17.200 Nicotine dependence, unspecified, uncomplicated; Z79.899 Other long term (current) drug therapy; Z88.0 Allergy status to penicillin; X50.1XXA Overexertion from prolonged static or awkward postures, initial encounter; Y93.89 Activity, other specified
CPT/HCPCS: 99283

== ENCOUNTER 2019-09-20 10:05 | Emergency (ER) | payer BC ==
[2019-09-20 10:16] VITALS: RESP 18; TEMP 97.8
[2019-09-20] MEDS ORDERED: SODIUM CHLORIDE 0.9% 1,000 ML IV STA (10:37)
[2019-09-20] MEDS ORDERED: ONDANSETRON 4 MG/2 ML VIAL IVP STA (10:37)
[2019-09-20] MEDS ORDERED: PANTOPRAZOLE 40 MG/10 ML VIAL IVP STA (10:37)
[2019-09-20] MEDS ORDERED: KETOROLAC 30 MG/ML 1 ML VIAL IVP STA (10:37)
[2019-09-20] MEDS ORDERED: DICYCLOMINE 10 MG/ML 2 ML AMP IM STA (10:37)
--- NOTE | 2019-09-20 10:42 | ED ---
Abdominal Pain HPI - General Chief Complaint: Abdominal Pain Stated Complaint: right side pain Time Seen by Provider: 09/20/19 10:18 Source: patient, family Mode of arrival: wheelchair - History of Present Illness Initial Comments: Patient is a 28-year-old female with history of kidney stones presenting to the emergency department with a chief complaint of abdominal pain, nausea vomiting. Patient reports a sudden onset of right flank pain radiates to the front along with nausea and multiple episodes of nonbilious, nonbloody vomiting. Patient reports this one does feel somewhat like her previous kidney stones but the kidney stone pain typically comes and goes in waves, with his currently the pain is constant. Patient reports the pain is sharp in nature. Patient denies increased urgency frequency dysuria. Denies constipation diarrhea abdominal bloating. Denies previous history of abdominal surgeries. States there is a possibility for . Denies vaginal symptoms. Denies hematuria, hematochezia or melena. Denies chest pain shortness of breath. - Related Data Home Medications Medication Instructions Recorded Confirmed Magnesium(Unknown) 1 tab PO AC-LUNCH 11/03/16 11/04/16 Phentermine HCl [Adipex-P] 37.5 mg PO Q48H 11/03/16 11/04/16 Pnv,Calcium 72/Iron/Folic Acid 1 tab PO DAILY 11/03/16 11/04/16 [ Plus Tablet] Vitamin B-12/Vitamin C 1 tab PO DAILY 11/03/16 11/04/16 Previous Rx's Medication Instructions Recorded Ibuprofen [Motrin] 600 mg PO Q6HR PRN #40 day 11/03/16 Doxycycline [Vibramycin] 50 mg PO Q12HR #14 capsule 11/05/16 Loratadine-Pseudoeph 5-120 mg 1 each PO Q12HR #4 tab.er.12h 11/05/16 [Claritin-D 12 Hour] Ibuprofen [Motrin] 800 mg PO Q8H PRN 5 Days #15 tab 03/26/18 Hydrocodone/Acetaminophen [Nunda 1 tab PO Q6HR PRN #12 tab 09/20/19 5-325] Ondansetron Odt [Zofran Odt] 4 mg PO Q8HR PRN #15 tab 09/20/19 Ondansetron Odt [Zofran Odt] 4 mg PO Q8HR PRN #15 tab 09/20/19 Ondansetron Odt [Zofran Odt] 4 mg PO Q8HR PRN #15 tab 09/20/19 Tamsulosin [Flomax] 0.4 mg PO DAILY #7 cap 09/20/19 Tamsulosin [Flomax] 0.4 mg PO DAILY #7 cap 09/20/19 Tamsulosin [Flomax] 0.4 mg PO DAILY #7 cap 09/20/19 Allergies Allergy/AdvReac Type Severity Reaction Status Date / Time Penicillins Allergy Unknown Verified 03/26/18 12:04 Review of Systems ROS Statement: Those systems with pertinent positive or pertinent negative responses have been documented in the HPI. ROS Other: All systems not noted in ROS Statement are negative. Past Medical History Past Medical History: No Reported History Additional Past Medical History / Comment(s): KIDNEY STONE, ovarian cysts, poly cystic ovary, History of Any Multi-Drug Resistant Organisms: None Reported Past Surgical History: No Surgical Hx Reported Additional Past Surgical History / Comment(s): tooth extraction Past Anesthesia/Blood Transfusion Reactions: No Reported Reaction Past Psychological History: No Psychological Hx Reported Smoking Status: Current every day smoker Past Alcohol Use History: None Reported, Occasional Past Drug Use History: None Reported - Past Family History Father Additional Family Medical History / Comment(s): in hunting accident Mother Additional Family Medical History / Comment(s): healthy General Exam Limitations: no limitations General appearance: alert, in no apparent distress, obese Head exam: Present: atraumatic, normocephalic, normal inspection Eye exam: Present: normal appearance, PERRL, EOMI Pupils: Present: normal accommodation ENT exam: Present: normal exam, normal oropharynx, mucous membranes moist, TM's normal bilaterally, normal external ear exam Neck exam: Present: normal inspection, full ROM. Absent: tenderness, lymphadenopathy Respiratory exam: Present: normal lung sounds bilaterally. Absent: respiratory distress, wheezes, rales Cardiovascular Exam: Present: regular rate, normal rhythm, normal heart sounds GI/Abdominal exam: Present: soft, tenderness (Right upper quadrant tenderness, negative Arellano sign.), normal bowel sounds. Absent: distended, guarding, rebound Extremities exam: Present: normal inspection, full ROM, normal capillary refill Back exam: Present: normal inspection, full ROM, CVA tenderness (R) Neurological exam: Present: alert, oriented X3 Psychiatric exam: Present: normal affect, normal mood Skin exam: Present: warm, dry, intact, normal color Course Vital Signs 09/20/19 10:13 Temperature 97.8 F Pulse Rate 88 Respiratory 18 Rate Blood Pressure 122/87 O2 Sat by Pulse 97 Oximetry Medical Decision Making - Medical Decision Making Patient is a 28-year-old female with history of kidney stones presenting to emergency Department with a chief complaint of abdominal pain nausea vomiting. On exam patient has right CVA tenderness, right flank tenderness. No urinary or vaginal symptoms. UA does show large amounts of blood and greater than 182 red blood cells. No signs of urinary tract infection. Considering the patient has a history of kidney stones. No further imaging necessary at this time. Patient given fluids, antiemetics and analgesia. Patient will be discharged and advised to follow-up with urology. Patient discharged with analgesia, antiemetics and Flomax. Vital stable. Strict return parameters were thoroughly discussed with patient was understanding and agreeable. Case discussed with physician. - Lab Data Result diagrams: 09/20/19 10:47 09/20/19 10:47 Lab Results 09/20/19 09/20/19 09/20/19 Range/Units 10:47 10:47 11:16 WBC 11.8 H (3.8-10.6) k/uL RBC 4.69 (3.80-5.40) m/uL Hgb 14.8 (11.4-16.0) gm/dL Hct 44.1 (34.0-46.0) % MCV 94.0 (80.0-100.0) fL MCH 31.5 (25.0-35.0) pg MCHC 33.6 (31.0-37.0) g/dL RDW 12.6 (11.5-15.5) % Plt Count 317 (150-450) k/uL Neutrophils % 71 % Lymphocytes % 19 % Monocytes % 4 % Eosinophils % 4 % Basophils % 1 % Neutrophils # 8.4 H (1.3-7.7) k/uL Lymphocytes # 2.2 (1.0-4.8) k/uL Monocytes # 0.5 (0-1.0) k/uL Eosinophils # 0.5 (0-0.7) k/uL Basophils # 0.1 (0-0.2) k/uL Sodium 142 (137-145) mmol/L Potassium 4.3 (3.5-5.1) mmol/L Chloride 112 H (98-107) mmol/L Carbon Dioxide 20 L (22-30) mmol/L Anion Gap 10 mmol/L BUN 9 (7-17) mg/dL Creatinine 0.88 (0.52-1.04) mg/dL Est GFR (CKD-EPI)AfAm >90 (>60 ml/min/1.73 sqM) Est GFR (CKD-EPI)NonAf 90 (>60 ml/min/1.73 sqM) Glucose 102 H (74-99) mg/dL Calcium 10.2 (8.4-10.2) mg/dL Total Bilirubin 0.4 (0.2-1.3) mg/dL AST 22 (14-36) U/L ALT 21 (4-34) U/L Alkaline Phosphatase 65 (38-126) U/L Total Protein 7.4 (6.3-8.2) g/dL Albumin 4.6 (3.5-5.0) g/dL Amylase 56 (30-110) U/L Lipase 205 (23-300) U/L Urine Color Light Red Urine Appearance Turbid H (Clear) Urine pH 5.5 (5.0-8.0) Ur Specific [place] 1.026 (1.001-1.035) Urine Protein 1+ H (Negative) Urine Glucose (UA) Negative (Negative) Urine Ketones Negative (Negative) Urine Blood Large H (Negative) Urine Nitrite Negative (Negative) Urine Bilirubin Negative (Negative) Urine Urobilinogen <2.0 (<2.0) mg/dL Ur Leukocyte Esterase Trace H (Negative) Urine RBC >182 H (0-5) /hpf Urine WBC 13 H (0-5) /hpf Ur Squamous Epith Cells 6 H (0-4) /hpf Calcium Oxalate Crystal Rare H (None) /hpf Urine Bacteria Moderate H (None) /hpf Urine Mucus Occasional H (None) /hpf Disposition Clinical Impression: Right flank pain, Nausea & vomiting Disposition: HOME SELF-CARE Condition: Stable Instructions (If sedation given, give patient instructions): Kidney Stones (ED) Additional Instructions: Please follow up with urology. Please return to emergency department if sympto ms worsen. Prescriptions: Tamsulosin [Flomax] 0.4 mg PO DAILY #7 cap Tamsulosin [Flomax] 0.4 mg PO DAILY #7 cap Tamsulosin [Flomax] 0.4 mg PO DAILY #7 cap Hydrocodone/Acetaminophen [Nunda 5-325] 1 tab PO Q6HR PRN #12 tab PRN Reason: Pain Ondansetron Odt [Zofran Odt] 4 mg PO Q8HR PRN #15 tab PRN Reason: Nausea Ondansetron Odt [Zofran Odt] 4 mg PO Q8HR PRN #15 tab PRN Reason: Nausea Ondansetron Odt [Zofran Odt] 4 mg PO Q8HR PRN #15 tab PRN Reason: Nausea Is patient prescribed a controlled substance at d/c from ED?: No Referrals: Jhon Loera DO [Primary Care Provider] - 1-2 days Refugio Walker MD [STAFF PHYSICIAN] - 1-2 days Time of Disposition: 12:22
[2019-09-20 11:02] LABS: Basophils # (A) 0.1 k/uL (0-0.2); Basophils % (A) 1 %; Eosinophils # (A) 0.5 k/uL (0-0.7); Eosinophils % (A) 4 %; HCT 44.1 % (34.0-46.0); HGB 14.8 gm/dL (11.4-16.0); Lymphocytes # (A) 2.2 k/uL (1.0-4.8); Lymphocytes % (A) 19 %; MCH 31.5 pg (25.0-35.0); MCHC 33.6 g/dL (31.0-37.0); Mean Platelet Volume 7.7; Monocytes # (A) 0.5 k/uL (0-1.0); Monocytes % (A) 4 %; Neutrophils # (A) 8.4 k/uL (1.3-7.7); Neutrophils % (A) 71 %; Platelet Count 317 k/uL (150-450); RBC 4.69 m/uL (3.80-5.40); RDW 12.6 % (11.5-15.5); WBC 11.8 k/uL (3.8-10.6)
[2019-09-20 11:03] LABS: ALT 21 U/L (4-34); AST 22 U/L (14-36); African American GFR (CKD) >90 (>60 ml/min/1.73 sqM); Albumin 4.6 g/dL (3.5-5.0); Alkaline Phosphatase 65 U/L (38-126); Amylase 56 U/L (30-110); Anion Gap 10 mmol/L; Blood Urea Nitrogen 9 mg/dL (7-17); Calcium 10.2 mg/dL (8.4-10.2); Carbon Dioxide 20 mmol/L (22-30); Chloride 112 mmol/L (98-107); Glucose 102 mg/dL (74-99); Non-African American GFR(CKD) 90 (>60 ml/min/1.73 sqM); Potassium 4.3 mmol/L (3.5-5.1); Sodium 142 mmol/L (137-145); Total Bilirubin 0.4 mg/dL (0.2-1.3); Total Protein 7.4 g/dL (6.3-8.2)
[2019-09-20 11:32] LABS: Appearance,Urine Turbid (Clear); Bacteria,Urine Moderate /hpf; Bilirubin,Urine Negative (Negative); Blood,Urine Large (Negative); Calcium Oxalate Crystals,Urine Rare /hpf; Color,Urine Light Red; Glucose,Urine (UA) Negative (Negative); Ketones,Urine Negative (Negative); Leukocyte Esterase,Urine Trace (Negative); Mucus,Urine Occasional /hpf; Nitrite,Urine Negative (Negative); PH, Urine 5.5 (5.0-8.0); Protein,Urine 1+ (Negative); RBC,Urine >182 /hpf (0-5); Specific Gravity,Urine 1.026 (1.001-1.035); Squamous Epithelial Cell,Urine 6 /hpf (0-4); Urobilinogen,Urine <2.0 mg/dL (<2.0); WBC,Urine 13 /hpf (0-5)
[2019-09-20] MEDS ORDERED: HYDROcodone/APAP 5-325MG 1 EACH TAB PO STA (12:12)
[2019-09-20 12:53] VITALS: BP 115/74; PULSE 72
== END 2019-09-20 12:50 | disposition home or self-care (01) ==
LOC: EC 10:05
DX: R10.9 Unspecified abdominal pain (principal); R11.2 Nausea with vomiting, unspecified; R31.9 Hematuria, unspecified; M54.9 Dorsalgia, unspecified; E66.9 Obesity, unspecified; F17.200 Nicotine dependence, unspecified, uncomplicated; Z88.0 Allergy status to penicillin; Z79.899 Other long term (current) drug therapy; Z87.442 Personal history of urinary calculi; Z68.31 Body mass index [BMI] 31.0-31.9, adult
CPT/HCPCS: 36415; 80053; 82150; 83690; 85025; 81001; 87086; 99284; 96374; 96375 ×2; 96361; 96372; J0500; J2405; J1885; C9113

== ENCOUNTER 2019-10-14 10:20 | Emergency (ER) | payer BC ==
[2019-10-14 11:03] VITALS: RESP 18
[2019-10-14] MEDS ORDERED: SODIUM CHLORIDE 0.9% 1,000 ML IV STA (11:23)
[2019-10-14] MEDS ORDERED: ONDANSETRON 4 MG/2 ML VIAL IVP STA (11:23)
[2019-10-14] MEDS ORDERED: KETOROLAC 30 MG/ML 1 ML VIAL IVP STA (11:23)
--- NOTE | 2019-10-14 11:32 | ED ---
Abdominal Pain HPI - General Chief Complaint: Abdominal Pain Stated Complaint: flank pain Time Seen by Provider: 10/14/19 11:08 Source: patient, family Mode of arrival: ambulatory Limitations: no limitations - History of Present Illness Initial Comments: Patient is a 28-year-old female presenting to the emergency Department with complaints of right upper quadrant and right sided abdominal pain started suddenly this morning. Patient states she was in the ER 3 weeks ago and had similar pain. She does have a history of kidney stones. Patient states his pain does feel similar to kidney stones however the pain is more into the front this time around. Patient states they did not do imaging last time. She denies any hematuria. She denies any abdominal surgeries. Patient states the pain started in the right upper quadrant has been migrating towards her right back. Patient denies fever, chills. She does admit to mild nausea, no vomiting, no diarrhea. She has no other complaints at this time. Upon arrival to the ER, vital signs are stable. - Related Data Home Medications Medication Instructions Recorded Confirmed Magnesium(Unknown) 1 tab PO AC-LUNCH 11/03/16 11/04/16 Phentermine HCl [Adipex-P] 37.5 mg PO Q48H 11/03/16 11/04/16 Pnv,Calcium 72/Iron/Folic Acid 1 tab PO DAILY 11/03/16 11/04/16 [ Plus Tablet] Vitamin B-12/Vitamin C 1 tab PO DAILY 11/03/16 11/04/16 Previous Rx's Medication Instructions Recorded Ibuprofen [Motrin] 600 mg PO Q6HR PRN #40 day 11/03/16 Doxycycline [Vibramycin] 50 mg PO Q12HR #14 capsule 11/05/16 Loratadine-Pseudoeph 5-120 mg 1 each PO Q12HR #4 tab.er.12h 11/05/16 [Claritin-D 12 Hour] Ibuprofen [Motrin] 800 mg PO Q8H PRN 5 Days #15 tab 03/26/18 Hydrocodone/Acetaminophen [[place] 1 tab PO Q6HR PRN #12 tab 09/20/19 5-325] Ondansetron Odt [Zofran Odt] 4 mg PO Q8HR PRN #15 tab 09/20/19 Ondansetron Odt [Zofran Odt] 4 mg PO Q8HR PRN #15 tab 09/20/19 Ondansetron Odt [Zofran Odt] 4 mg PO Q8HR PRN #15 tab 09/20/19 Tamsulosin [Flomax] 0.4 mg PO DAILY #7 cap 09/20/19 Tamsulosin [Flomax] 0.4 mg PO DAILY #7 cap 09/20/19 Tamsulosin [Flomax] 0.4 mg PO DAILY #7 cap 09/20/19 Ketorolac [Toradol] 10 mg PO Q8HR #10 tab 10/14/19 Ondansetron Odt [Zofran Odt] 4 mg PO Q8HR PRN #10 tab 10/14/19 Tamsulosin [Flomax] 0.4 mg PO DAILY #7 cap 10/14/19 Allergies Allergy/AdvReac Type Severity Reaction Status Date / Time Penicillins Allergy Unknown Verified 03/26/18 12:04 Review of Systems ROS Statement: Those systems with pertinent positive or pertinent negative responses have been documented in the HPI. ROS Other: All systems not noted in ROS Statement are negative. Past Medical History Past Medical History: No Reported History Additional Past Medical History / Comment(s): KIDNEY STONE, ovarian cysts, poly cystic ovary, History of Any Multi-Drug Resistant Organisms: None Reported Past Surgical History: No Surgical Hx Reported Additional Past Surgical History / Comment(s): tooth extraction Past Anesthesia/Blood Transfusion Reactions: No Reported Reaction Past Psychological History: No Psychological Hx Reported Smoking Status: Current every day smoker Past Alcohol Use History: None Reported, Occasional Past Drug Use History: None Reported - Past Family History Father Additional Family Medical History / Comment(s): in hunting accident Mother Additional Family Medical History / Comment(s): healthy General Exam - General Exam Comments Initial Comments: GENERAL: Well-appearing, well-nourished and in no acute distress. HEAD: Atraumatic, normocephalic. EYES: Pupils equal round and reactive to light, extraocular movements intact, sclera anicteric, conjunctiva are normal. ENT: TMs normal, nares patent, oropharynx clear without exudates. Moist mucous membranes. NECK: Normal range of motion, supple without lymphadenopathy or JVD. LUNGS: Breath sounds clear to auscultation bilaterally and equal. No wheezes rales or rhonchi. HEART: Regular rate and rhythm without murmurs, rubs or gallops. ABDOMEN: Pain with palpation of right upper quadrant as well as right flank and right side of abdomen. Soft, normoactive bowel sounds. No guarding, no rebound. No masses appreciated. : Deferred EXTREMITIES: Normal range of motion, no pitting or edema. No clubbing or cyanosis. NEUROLOGICAL: Normal speech, normal gait. PSYCH: Normal mood, normal affect. SKIN: Warm, Dry, normal turgor, no rashes or lesions noted. Limitations: no limitations Course Vital Signs 10/14/19 10/14/19 11:00 13:31 Temperature 97.6 F 97.8 F Pulse Rate 87 77 Respiratory 18 18 Rate Blood Pressure 131/87 121/90 O2 Sat by Pulse 99 100 Oximetry Medical Decision Making - Medical Decision Making Patient is a 28-year-old female presenting with right upper quadrant and right sided abdominal pain that started suddenly this morning. Patient was seen in the ER 3 weeks ago was diagnosed with kidney stones. She does have history of stones. Vital signs stable. Laboratory shows no acute abnormalities. Urine shows moderate amount of blood, many bacteria. HCG is not detected. Urine culture is pending at this time. CT the abdomen shows an obstructing 6 mm proximal right ureter calculus causing mild right-sided hydronephrosis. No other acute findings. The gallbladder looks normal. I discussed these findings with the patient. Patient will be started on Flomax, pain control, Zofran. She will be given a referral to urologist. He discussed increasing her water intake and decreasing amount of pop she drinks. Patient is stable for discharge at this time. She is in agreement with this plan of care. Return parameters were discussed with the patient she verbalized understanding. Case discussed with Dr. Manning. - Lab Data Result diagrams: 10/14/19 11:40 10/14/19 11:40 Lab Results 10/14/19 10/14/19 10/14/19 Range/Units 11:40 11:40 11:40 WBC 8.3 (3.8-10.6) k/uL RBC 5.12 (3.80-5.40) m/uL Hgb 15.6 (11.4-16.0) gm/dL Hct 47.5 H (34.0-46.0) % MCV 92.8 (80.0-100.0) fL MCH 30.6 (25.0-35.0) pg MCHC 32.9 (31.0-37.0) g/dL RDW 12.5 (11.5-15.5) % Plt Count 340 (150-450) k/uL Neutrophils % 66 % Lymphocytes % 24 % Monocytes % 5 % Eosinophils % 4 % Basophils % 1 % Neutrophils # 5.4 (1.3-7.7) k/uL Lymphocytes # 2.0 (1.0-4.8) k/uL Monocytes # 0.4 (0-1.0) k/uL Eosinophils # 0.3 (0-0.7) k/uL Basophils # 0.1 (0-0.2) k/uL Sodium 141 (137-145) mmol/L Potassium 4.3 (3.5-5.1) mmol/L Chloride 108 H (98-107) mmol/L Carbon Dioxide 21 L (22-30) mmol/L Anion Gap 12 mmol/L BUN 13 (7-17) mg/dL Creatinine 0.99 (0.52-1.04) mg/dL Est GFR (CKD-EPI)AfAm 89 (>60 ml/min/1.73 sqM) Est GFR (CKD-EPI)NonAf 78 (>60 ml/min/1.73 sqM) Glucose 90 (74-99) mg/dL Calcium 10.4 H (8.4-10.2) mg/dL Total Bilirubin 0.4 (0.2-1.3) mg/dL AST 22 (14-36) U/L ALT 21 (4-34) U/L Alkaline Phosphatase 67 (38-126) U/L Total Protein 8.0 (6.3-8.2) g/dL Albumin 5.0 (3.5-5.0) g/dL Amylase 55 (30-110) U/L Lipase 161 (23-300) U/L Urine Color Yellow Urine Appearance Cloudy H (Clear) Urine pH 5.5 (5.0-8.0) Ur Specific [place] 1.031 (1.001-1.035) Urine Protein 1+ H (Negative) Urine Glucose (UA) Negative (Negative) Urine Ketones Negative (Negative) Urine Blood Moderate H (Negative) Urine Nitrite Negative (Negative) Urine Bilirubin Negative (Negative) Urine Urobilinogen <2.0 (<2.0) mg/dL Ur Leukocyte Esterase Small H (Negative) Urine RBC >182 H (0-5) /hpf Urine WBC 22 H (0-5) /hpf Ur Squamous Epith Cells 8 H (0-4) /hpf Calcium Oxalate Crystal Occasional H (None) /hpf Urine Bacteria Many H (None) /hpf Urine Mucus Moderate H (None) /hpf Urine HCG, Qual (Not Detectd) 10/14/19 Range/Units 11:40 WBC (3.8-10.6) k/uL RBC (3.80-5.40) m/uL Hgb (11.4-16.0) gm/dL Hct (34.0-46.0) % MCV (80.0-100.0) fL MCH (25.0-35.0) pg MCHC (31.0-37.0) g/dL RDW (11.5-15.5) % Plt Count (150-450) k/uL Neutrophils % % Lymphocytes % % Monocytes % % Eosinophils % % Basophils % % Neutrophils # (1.3-7.7) k/uL Lymphocytes # (1.0-4.8) k/uL Monocytes # (0-1.0) k/uL Eosinophils # (0-0.7) k/uL Basophils # (0-0.2) k/uL Sodium (137-145) mmol/L Potassium (3.5-5.1) mmol/L Chloride (98-107) mmol/L Carbon Dioxide (22-30) mmol/L Anion Gap mmol/L BUN (7-17) mg/dL Creatinine (0.52-1.04) mg/dL Est GFR (CKD-EPI)AfAm (>60 ml/min/1.73 sqM) Est GFR (CKD-EPI)NonAf (>60 ml/min/1.73 sqM) Glucose (74-99) mg/dL Calcium (8.4-10.2) mg/dL Total Bilirubin (0.2-1.3) mg/dL AST (14-36) U/L ALT (4-34) U/L Alkaline Phosphatase (38-126) U/L Total Protein (6.3-8.2) g/dL Albumin (3.5-5.0) g/dL Amylase (30-110) U/L Lipase (23-300) U/L Urine Color Urine Appearance (Clear) Urine pH (5.0-8.0) Ur Specific [place] (1.001-1.035) Urine Protein (Negative) Urine Glucose (UA) (Negative) Urine Ketones (Negative) Urine Blood (Negative) Urine Nitrite (Negative) Urine Bilirubin (Negative) Urine Urobilinogen (<2.0) mg/dL Ur Leukocyte Esterase (Negative) Urine RBC (0-5) /hpf Urine WBC (0-5) /hpf Ur Squamous Epith Cells (0-4) /hpf Calcium Oxalate Crystal (None) /hpf Urine Bacteria (None) /hpf Urine Mucus (None) /hpf Urine HCG, Qual Not Detected (Not Detectd) Disposition Clinical Impression: Right ureteral calculus, Right flank pain Disposition: HOME SELF-CARE Condition: Stable Instructions (If sedation given, give patient instructions): Kidney Stones (ED) Additional Instructions: Please return to the Emergency Department if symptoms worsen or any other concerns. Take medications as prescribed. Follow-up with urology as discussed. Prescriptions: Tamsulosin [Flomax] 0.4 mg PO DAILY #7 cap Ketorolac [Toradol] 10 mg PO Q8HR #10 tab Ondansetron Odt [Zofran Odt] 4 mg PO Q8HR PRN #10 tab PRN Reason: Nausea Is patient prescribed a controlled substance at d/c from ED?: No Referrals: Jhon Loera DO [Primary Care Provider] - 1-2 days Kei Cannon MD [STAFF PHYSICIAN] - 1-2 days
[2019-10-14 11:55] LABS: Basophils # (A) 0.1 k/uL (0-0.2); Basophils % (A) 1 %; Eosinophils # (A) 0.3 k/uL (0-0.7); Eosinophils % (A) 4 %; HCT 47.5 % (34.0-46.0); HGB 15.6 gm/dL (11.4-16.0); Lymphocytes % (A) 24 %; MCH 30.6 pg (25.0-35.0); MCHC 32.9 g/dL (31.0-37.0); MCV 92.8 fL (80.0-100.0); Mean Platelet Volume 7.5; Monocytes # (A) 0.4 k/uL (0-1.0); Monocytes % (A) 5 %; Neutrophils # (A) 5.4 k/uL (1.3-7.7); Neutrophils % (A) 66 %; Platelet Count 340 k/uL (150-450); RBC 5.12 m/uL (3.80-5.40); RDW 12.5 % (11.5-15.5); WBC 8.3 k/uL (3.8-10.6)
[2019-10-14 12:02] LABS: Appearance,Urine Cloudy (Clear); Bacteria,Urine Many /hpf; Bilirubin,Urine Negative (Negative); Blood,Urine Moderate (Negative); Calcium Oxalate Crystals,Urine Occasional /hpf; Color,Urine Yellow; Glucose,Urine (UA) Negative (Negative); Ketones,Urine Negative (Negative); Leukocyte Esterase,Urine Small (Negative); Mucus,Urine Moderate /hpf; Nitrite,Urine Negative (Negative); PH, Urine 5.5 (5.0-8.0); Protein,Urine 1+ (Negative); RBC,Urine >182 /hpf (0-5); Specific Gravity,Urine 1.031 (1.001-1.035); Squamous Epithelial Cell,Urine 8 /hpf (0-4); Urobilinogen,Urine <2.0 mg/dL (<2.0); WBC,Urine 22 /hpf (0-5)
[2019-10-14 12:09] LABS: Calcium 10.4 mg/dL (8.4-10.2); Potassium 4.3 mmol/L (3.5-5.1); Total Bilirubin 0.4 mg/dL (0.2-1.3)
--- NOTE | 2019-10-14 12:43 | CT ---
EXAMINATION TYPE: CT abdomen pelvis wo con DATE OF EXAM: 10/14/2019 HISTORY: RUQ, right flank pain, kidney stone suspected CT DLP: 783 mGycm. Automated Exposure Control for Dose Reduction was Utilized. TECHNIQUE: CT scan of the abdomen and pelvis is performed without oral or IV contrast. COMPARISON: CT Abdomen and pelvis November 05, 2015 FINDINGS: Within the limitations of a non-contrast study, the following observations are made. LUNG BASES: No significant abnormality is appreciated. LIVER/GB: No significant abnormality is appreciated. PANCREAS: No significant abnormality is seen. SPLEEN: No significant abnormality is seen. ADRENALS: No significant abnormality is seen. KIDNEYS: Single 3 mm calculus lower pole left kidney coronal image 55. There are 2 small calculi righ t kidney measuring under 3 mm in size coronal image 52 and 58. There is 6 mm proximal right ureter ca lculus coronal image 51 causing [id number] right-sided hydronephrosis. No left-sided hydronephr osis. No intraluminal calculi in poorly distended bladder. BOWEL: Incidental normal-appearing appendix from cecum in the right lower quadrant. GENITAL ORGANS: Slightly retroverted uterus. Both ovaries are upper limits of normal size axial image 123 along the periphery. LYMPH NODES: No greater than 1cm abdominal or pelvic lymph nodes are appreciated. OSSEOUS STRUCTURES: No significant abnormality is seen. OTHER: No significant additional abnormality is seen. IMPRESSION: There is obstructing 6 mm proximal right ureter calculus causing [id number] right-s ided hydronephrosis on current study.
[2019-10-14 13:32] VITALS: BP 121/90; PULSE 77; TEMP 97.8
== END 2019-10-14 13:30 | disposition home or self-care (01) ==
LOC: EC 10:20
DX: N13.2 Hydronephrosis with renal and ureteral calculous obstruction (principal); F17.200 Nicotine dependence, unspecified, uncomplicated; Z88.0 Allergy status to penicillin; Z87.442 Personal history of urinary calculi
CPT/HCPCS: 36415; 80053; 82150; 83690; 85025; 81001; 81025; 87086; 74176; 99284; 96374; 96375; 96361; J2405; J1885

== ENCOUNTER 2021-02-22 16:21 | Emergency (ER) | payer BC ==
[2021-02-22] MEDS ORDERED: SODIUM CHLORIDE 0.9% 1,000 ML IV STA (17:29)
[2021-02-22 17:48] LABS: Basophils # (A) 0.1 k/uL (0-0.2); Basophils % (A) 1 %; Eosinophils # (A) 0.1 k/uL (0-0.7); Eosinophils % (A) 1 %; HCT 47.9 % (34.0-46.0); HGB 15.6 gm/dL (11.4-16.0); Lymphocytes # (A) 2.6 k/uL (1.0-4.8); Lymphocytes % (A) 25 %; MCHC 32.5 g/dL (31.0-37.0); MCV 92.3 fL (80.0-100.0); Mean Platelet Volume 7.5; Monocytes # (A) 0.6 k/uL (0-1.0); Monocytes % (A) 5 %; Neutrophils # (A) 7.2 k/uL (1.3-7.7); Neutrophils % (A) 68 %; Platelet Count 293 k/uL (150-450); RBC 5.19 m/uL (3.80-5.40); RDW 13.1 % (11.5-15.5); WBC 10.6 k/uL (3.8-10.6)
--- NOTE | 2021-02-22 17:56 | ED ---
Chest Pain HPI - General Chief Complaint: Chest Pain Stated Complaint: chest pain, numbness in hands Time Seen by Provider: 02/22/21 17:15 Source: patient, RN notes reviewed Mode of arrival: ambulatory Limitations: no limitations - History of Present Illness Initial Comments: Patient is a 30-year-old female that presents to the emergency room complaining of intermittent blurry vision, and some point tenderness chest pain over the right pectoral major. She noted that she was anxious while in triage and feels like she might of gave her cell some chest pain from anxiety. She was in no apparent distress while sitting up. She noted that for the past few months especially while driving at night her vision gets blurry. She noted that the first time it happened he was on the highway the second of abdomen back roads and then yesterday it happened while sitting at home. She noted that she recently changed her diet [employer] has been watching her carbs eating less and try to hydrate more. She notes she drinks about 72 ounces of water per day. Patient noted that while sitting in bed she feels much better and fixed constantly that she is here. She denied any chest pain while sitting in bed, shortness of breath headache nausea vomiting diarrhea constipation fever fatigue chills lightheadedness dizziness. - Related Data Home Medications Medication Instructions Recorded Confirmed Magnesium(Unknown) 1 tab PO AC-LUNCH 11/03/16 11/04/16 Phentermine HCl [Adipex-P] 37.5 mg PO Q48H 11/03/16 11/04/16 Pnv,Calcium 72/Iron/Folic Acid 1 tab PO DAILY 11/03/16 11/04/16 [ Plus Tablet] Vitamin B-12/Vitamin C 1 tab PO DAILY 11/03/16 11/04/16 Previous Rx's Medication Instructions Recorded Ibuprofen [Motrin] 600 mg PO Q6HR PRN #40 day 11/03/16 Doxycycline [Vibramycin] 50 mg PO Q12HR #14 capsule 11/05/16 Loratadine-Pseudoeph 5-120 mg 1 each PO Q12HR #4 tab.er.12h 11/05/16 [Claritin-D 12 Hour] Ibuprofen [Motrin] 800 mg PO Q8H PRN 5 Days #15 tab 03/26/18 Hydrocodone/Acetaminophen [[place] 1 tab PO Q6HR PRN #12 tab 09/20/19 5-325] Ondansetron Odt [Zofran Odt] 4 mg PO Q8HR PRN #15 tab 09/20/19 Ondansetron Odt [Zofran Odt] 4 mg PO Q8HR PRN #15 tab 09/20/19 Ondansetron Odt [Zofran Odt] 4 mg PO Q8HR PRN #15 tab 09/20/19 Tamsulosin [Flomax] 0.4 mg PO DAILY #7 cap 09/20/19 Tamsulosin [Flomax] 0.4 mg PO DAILY #7 cap 09/20/19 Tamsulosin [Flomax] 0.4 mg PO DAILY #7 cap 09/20/19 Ketorolac [Toradol] 10 mg PO Q8HR #10 tab 10/14/19 Ondansetron Odt [Zofran Odt] 4 mg PO Q8HR PRN #10 tab 10/14/19 Tamsulosin [Flomax] 0.4 mg PO DAILY #7 cap 10/14/19 Allergies Allergy/AdvReac Type Severity Reaction Status Date / Time Penicillins Allergy Unknown Verified 02/22/21 16:28 Review of Systems ROS Statement: Those systems with pertinent positive or pertinent negative responses have been documented in the HPI. ROS Other: All systems not noted in ROS Statement are negative. EKG Findings - EKG Comments: EKG Findings:: Ventricular rate 111 bpm, RI interval 128 ms, QRS duration 82 ms, QT/QTC 320/435 ms, PRT axes 42/20/53. Sinus tachycardia, otherwise normal ECG. Past Medical History Past Medical History: No Reported History Additional Past Medical History / Comment(s): KIDNEY STONE, ovarian cysts, poly cystic ovary, History of Any Multi-Drug Resistant Organisms: None Reported Past Surgical History: No Surgical Hx Reported Additional Past Surgical History / Comment(s): tooth extraction Past Anesthesia/Blood Transfusion Reactions: No Reported Reaction Past Psychological History: No Psychological Hx Reported Smoking Status: Never smoker Past Alcohol Use History: None Reported, Occasional Past Drug Use History: None Reported - Past Family History Father Additional Family Medical History / Comment(s): in hunting accident Mother Additional Family Medical History / Comment(s): healthy General Exam Limitations: no limitations General appearance: alert, in no apparent distress Head exam: Present: atraumatic, normocephalic, normal inspection Eye exam: Present: normal appearance, PERRL, EOMI. Absent: scleral icterus, conjunctival injection, periorbital swelling Neck exam: Present: normal inspection. Absent: tenderness, meningismus, lymphadenopathy Respiratory exam: Present: normal lung sounds bilaterally. Absent: respiratory distress, wheezes, rales, rhonchi, stridor Cardiovascular Exam: Present: regular rate, normal rhythm, normal heart sounds, other (Point tenderness over the mid right pectoral major muscle.). Absent: systolic murmur, diastolic murmur, rubs, gallop, clicks GI/Abdominal exam: Present: soft, normal bowel sounds. Absent: distended, tenderness, guarding, rebound, rigid Extremities exam: Present: normal inspection, full ROM, normal capillary refill. Absent: tenderness, pedal edema, joint swelling, calf tenderness Neurological exam: Present: alert, oriented X3, CN II-XII intact Psychiatric exam: Present: normal affect, normal mood Skin exam: Present: warm, dry, intact, normal color. Absent: rash Course Vital Signs 02/22/21 02/22/21 02/22/21 16:24 16:28 17:28 Temperature 97.5 F L 98.1 F Pulse Rate 112 H 94 84 Respiratory 20 16 Rate Blood Pressure 154/87 135/96 O2 Sat by Pulse 100 99 Oximetry 02/22/21 18:00 Temperature 98.6 F Pulse Rate 90 Respiratory 12 Rate Blood Pressure 126/83 O2 Sat by Pulse 100 Oximetry Chest Pain MDM - MDM 30-year-old female complaining of chest pain and some intermittent blurry vision. Labs, chest x-ray, CT of the brain, 1 L normal saline, EKG, ekg monitor ordered. CT of the brain: Ventricles and saw a car appeared normal. There is no mass effect or midline shift. There is no sign of intracranial hemorrhage. Calvarium is intact. Skull base is intact. There is normal aeration of the mastoid sinuses. Salter prescription appears well. Chest x-ray: Normal chest. Labs unremarkable Case discussed with Dr. Manning, patient can follow up with technical customer support specialist and primary care as planned. - Wells Criteria Clinical Symptoms of DVT: (0) No No Alternative Diagnosis: (0) No Immobilization of Surgery in Previous 4 Weeks: (0) No Previous DVT/PE: (0) No Hemoptysis: (0) No Malignancy: (0) No - KARTHIKEYAN Score Age > 65: (0) No 3 or more CAD Risk Factors: (0) No Known CAD with more than 50% Stenosis: (0) No Aspirin use within the Past 7 Days: (0) No Elevated Cardiac Markers: (0) No ST Deviation Greater than 0.5mm: (0) No Disposition Clinical Impression: Atypical chest pain, Blurry vision Disposition: HOME SELF-CARE Condition: Stable Instructions (If sedation given, give patient instructions): Chest Pain (ED) Additional Instructions: Please return to the Emergency Department if symptoms worsen or any other concerns. Follow-up with primary care as planned. Follow-up with television tube inspector as planned. Can continue to take at home medications as prescribed. Is patient prescribed a controlled substance at d/c from ED?: No Referrals: Jhon Loera DO [Primary Care Provider] - 1-2 days Time of Disposition: 19:03
[2021-02-22 18:03] LABS: Appearance,Urine Clear (Clear); Bacteria,Urine Occasional /hpf; Bilirubin,Urine Negative (Negative); Blood,Urine Small (Negative); Color,Urine Yellow; Glucose,Urine (UA) Negative (Negative); Ketones,Urine Trace (Negative); Leukocyte Esterase,Urine Trace (Negative); Mucus,Urine Rare /hpf; Nitrite,Urine Negative (Negative); PH, Urine 5.5 (5.0-8.0); Protein,Urine Negative (Negative); RBC,Urine 2 /hpf (0-5); Specific Gravity,Urine 1.019 (1.001-1.035); Squamous Epithelial Cell,Urine 4 /hpf (0-4); Urobilinogen,Urine <2.0 mg/dL (<2.0); WBC,Urine 2 /hpf (0-5)
[2021-02-22 18:04] LABS: ALT 21 U/L (4-34); AST 24 U/L (14-36); African American GFR (CKD) >90 (>60 ml/min/1.73 sqM); Albumin 4.9 g/dL (3.5-5.0); Alkaline Phosphatase 80 U/L (38-126); Anion Gap 14 mmol/L; Blood Urea Nitrogen 12 mg/dL (7-17); Carbon Dioxide 19 mmol/L (22-30); Chloride 108 mmol/L (98-107); Glucose 124 mg/dL (74-99); Magnesium 1.9 mg/dL (1.6-2.3); Non-African American GFR(CKD) >90 (>60 ml/min/1.73 sqM); Potassium 3.8 mmol/L (3.5-5.1); Sodium 141 mmol/L (137-145); Total Bilirubin 0.2 mg/dL (0.2-1.3); Total Protein 7.7 g/dL (6.3-8.2)
--- NOTE | 2021-02-22 18:06 | CT ---
EXAMINATION TYPE: CT brain wo con DATE OF EXAM: 02/22/2021 COMPARISON: None HISTORY: Blurred vision with near syncope. CT DLP: 1091.4 mGycm Automated exposure control for dose reduction was used. Ventricles and sulci appear normal. There is no mass effect nor midline shift. There is no sign of in tracranial hemorrhage. Calvarium is intact. Skull base is intact. There is normal aeration of the mas toid sinuses. Sella turcica appears normal. IMPRESSION: Normal unenhanced head CT scan.
[2021-02-22 18:32] LABS: Partial Thromboplastin Time 23.3 sec (22.0-30.0); Prothrombin Time 10.4 sec (9.0-12.0)
[2021-02-22 18:40] VITALS: BP 126/83; PULSE 90; RESP 12; TEMP 98.6
--- NOTE | 2021-02-22 18:52 | XR ---
EXAMINATION TYPE: XR chest 2V DATE OF EXAM: 02/22/2021 COMPARISON: NONE HISTORY: Chest pain TECHNIQUE: 2 views FINDINGS: Heart and mediastinum are normal. Lungs are clear. Diaphragm is normal. Bony thorax is inta ct. IMPRESSION: Normal chest.
== END 2021-02-22 19:09 | disposition home or self-care (01) ==
LOC: EC 16:21
DX: R07.89 Other chest pain (principal); H53.8 Other visual disturbances; R20.0 Anesthesia of skin; Z88.0 Allergy status to penicillin
CPT/HCPCS: 36415; 70450; 71046; 80053; 81001; 81025; 83735; 84484; 85025; 85610; 85730; 93005; 99285